=== PATIENT | male | born 1945 | race Caucasian/White ===

== ENCOUNTER 2017-01-10 10:53 | Outpatient (CLI) | payer MEDICARE, BC ==
--- NOTE | 2017-01-10 16:47 | ULT ---
RIGHT UPPER EXTREMITY VENOUS ULTRASOUND 01/10/17 Ultrasonography of the right upper extremity was performed for evaluation of pain and swelling. All deep veins were freely compressible from the jugular/subclavian region down through the distal f orearm. Thus, there is no evidence of DVT. There was normal doppler responses to augmentation maneuv ers. Scanning around the area of swelling showed no sign of mass, focal fluid collection, or other concer lindsey pathology. IMPRESSION: 1. No evidence of DVT. 2. No distinct pathology shown. POS: [facility]
== END 2017-01-10 10:54 | disposition home or self-care (01) ==
LOC: BURULT 10:53
PROVIDERS: ATTEND Family Medicine
DX: M79.631 Pain in right forearm (principal); M79.89 Other specified soft tissue disorders

== ENCOUNTER 2018-05-04 12:07 | Emergency (ER) | payer MEDICARE, BC ==
[2018-05-04] MEDS ORDERED: Lidocaine 1% w/Epinephrine 1:100K 30 ML VIAL ONE (12:18)
[2018-05-04] MEDS ORDERED: Lidocaine 1% PF 5 ML VIAL ONE ×2 (12:19→13:17)
[2018-05-04 12:26] LABS: #Basophils 0.1 thou/uL (0.0-0.2); #Eosinphils 0.3 thou/uL (0.0-0.7); #Lymphocytes 2.2 thou/uL (1.20-3.40); #Monocytes 0.6 thou/uL (0.11-0.59); #Neutrophils 4.4 thou/uL (1.40-6.50); %Basophils 1.5 % (0.0-1.0); %Eosinophils 3.3 % (0.0-10.0); %Lymphocytes 28.9 % (21.0-51.0); %Neutrophils 58.4 % (42.0-75.0); Hemoglobin 14.2 g/dL (14.0-18.0); Mean Corpuscular HGB CONC 33.1 g/dL (32.0-36.0); Mean Corpuscular Hemoglobin 27.4 pg (27.0-31.0); Mean Platelet Volume 7.9 fL (7.4-10.4); Platelet Count 277 thou/uL (130-400); RBC Distribution Width 11.8 % (11.5-14.5); Red Blood Cell (RBC) Count 5.17 mill/uL (4.70-6.10); White Blood Cell (WBC) Count 7.5 thou/uL (4.8-10.8)
[2018-05-04 12:34] LABS: MDiff Complete? YES
[2018-05-04 12:39] LABS: Anion Gap 16 mmol/L (10-20); BUN (Urea Nitrogen) 21 mg/dL (8.4-25.7); Calc. Creatinine Clearance 0 mL/min (70-130); Calcium 9.7 mg/dL (7.8-10.44); Carbon Dioxide 25 mmol/L (23-31); Chloride 103 mmol/L (98-107); Estimated GFR-MDRD 58; Glucose 125 mg/dL (83-110); Potassium 3.6 mmol/L (3.5-5.1); Sodium 140 mmol/L (136-145)
[2018-05-04] MEDS ORDERED: Adacel (T-DAP) 0.5 ML VIAL ONE (12:40)
[2018-05-04 12:44] LABS: CKMB 2.9 ng/mL (0-6.6); Troponin I Less than 0.010 ng/mL (< 0.028)
--- NOTE | 2018-05-04 13:35 | CT ---
CT BRAIN WITHOUT CONTRAST: Date: 05/04/18 HISTORY: Fell from ladder at a height of 4-ft while hanging [place] lights, head laceration, headache. FINDINGS: No evidence of infarct, hemorrhage, midline shift, or abnormal extra-axial fluid collections are seen . The ventricular size is normal and the basilar cisterns are patent. The bony calvarium is intact. T he visualized paranasal sinuses and mastoid air cells are well aerated. IMPRESSION: No CT evidence of acute intracranial process. POS: [facility]
--- NOTE | 2018-05-04 13:37 | RAD ---
PA AND LATERAL VIEWS CHEST: Date: 05/04/18 HISTORY: Injury, fell off 4-ft ladder, chest pain. FINDINGS/IMPRESSION: The heart size is normal. The aorta is tortuous. The lungs are expanded without focal areas of consol idation, pneumothoraces, or pleural effusions. There is subcutaneous emphysema in the right lower nec k. POS: [facility]
--- NOTE | 2018-05-04 13:40 | CT ---
CT CERVICAL SPINE WITH CORONAL AND SAGITTAL REFORMATIONS: Date: 05/04/18 HISTORY: Fell off 4-ft ladder, neck pain. FINDINGS/IMPRESSION: Degenerative changes are present. No acute fracture or subluxation is identified. No facet malalignme nt is seen. There is soft tissue air in the neck (right greater than left) and the mediastinum. Further evaluation with contrast enhanced CT scan of the chest is recommended. POS: [facility]
== END 2018-05-04 13:50 | disposition home or self-care (01) ==
LOC: BURERS 12:07
DX: S09.90XA Unspecified injury of head, initial encounter (principal); S11.91XA Laceration without foreign body of unspecified part of neck, initial encounter; I10 Essential (primary) hypertension; Z79.899 Other long term (current) drug therapy; W11.XXXA Fall on and from ladder, initial encounter
CPT/HCPCS: 12005; 70450; 71046; 72125; 80048; 82553; 84484; 85025; 90471; 90715; 93005; J2001

== ENCOUNTER 2020-05-04 16:04 | Emergency (ER) | payer MEDICARE, BC ==
[2020-05-04] MEDS ORDERED: TETANUS, DIPHTHERIA TOX,ADULT (TDVAX) 0.5 ML VIAL IM ONE ×2 (16:24→16:25)
--- NOTE | 2020-05-04 17:58 | CT ---
CT OF THE BRAIN WITHOUT CONTRAST: 05/04/20 INDICATION: History of fall with head injury. COMPARISON: Prior CT of the brain dated 05/04/18. FINDINGS: There is mild generalized cerebral and cerebellar atrophy. No definite acute infarct, hemorrhage or hydrocephalus is present. the septum pellucidum and third ve ntricle are midline. There is an air hemorrhage layer within the right maxillary sinus. There is a m inimally displaced right posterior and anterior wall right maxillary sinus fracture. The remaining pa ranasal sinuses are clear. Mastoid air cells are clear. IMPRESSION: 1. No acute intracranial abnormality. 2. Right anterior and posterior maxillary sinus wall fracture with associated air hemorrhage lay er within the right maxillary sinus. POS: [facility]
== END 2020-05-04 16:57 | disposition home or self-care (01) ==
LOC: BURERS 16:04
DX: S02.40CA Maxillary fracture, right side, initial encounter for closed fracture (principal); S02.5XXA Fracture of tooth (traumatic), initial encounter for closed fracture; S01.511A Laceration without foreign body of lip, initial encounter; S01.81XA Laceration without foreign body of other part of head, initial encounter; N40.0 Benign prostatic hyperplasia without lower urinary tract symptoms; I10 Essential (primary) hypertension; Z23 Encounter for immunization; W55.22XA Struck by cow, initial encounter; Y99.0 Civilian activity done for income or pay; Z79.899 Other long term (current) drug therapy
CPT/HCPCS: 12011; 70450; 90471; 90714

== ENCOUNTER 2021-05-29 17:16 | Emergency (ER) | payer MEDICARE, BC ==
[2021-05-29 18:03] LABS: Bilirubin Negative (Negative); Blood, Urine Negative (Negative); Clarity Clear (Clear); Glucose, Urine (Dipstick) Negative (Negative); Ketone, Urine 15 mg/dL (Negative); Leukocyte Negative (Negative); Nitrite Negative (Negative); Protein, Urine (Dipstick) Negative (Neg-Trace)
[2021-05-29 18:05] LABS: Hemoglobin 15.4 g/dL (14.0-18.0); Mean Corpuscular HGB CONC 33.7 g/dL (32.0-36.0); Mean Corpuscular Hemoglobin 28.8 pg (27.0-31.0); Mean Corpuscular Volume 85.3 fL (78.0-98.0); Platelet Count 213 thou/uL (130-400); RBC Distribution Width 11.1 % (11.5-14.5); Red Blood Cell (RBC) Count 5.36 mill/uL (4.70-6.10); White Blood Cell (WBC) Count 9.3 thou/uL (4.8-10.8)
[2021-05-29 18:10] LABS: ALT (SGPT) 16 U/L (8-55); AST (SGOT) 19 U/L (5-34); Albumin 4.1 g/dL (3.4-4.8); Alkaline Phosphatase 74 U/L (40-110); Anion Gap 13 mmol/L (10-20); BUN (Urea Nitrogen) 14 mg/dL (8.4-25.7); Bilirubin, Total 1.6 mg/dL (0.2-1.2); Calc. Creatinine Clearance 0 mL/min (70-130); Calcium 10.1 mg/dL (7.8-10.44); Carbon Dioxide 26 mmol/L (23-31); Chloride 95 mmol/L (98-107); Glucose 115 mg/dL (83-110); Potassium 4.4 mmol/L (3.5-5.1); Protein, Total 7.1 g/dL (5.8-8.1); Sodium 130 mmol/L (136-145)
[2021-05-29 20:10] LABS: Band 8 % (5-11); Eosinophils 1 % (0-10); Lymphocytes 16 % (21-51); MDiff Complete? YES; Monocytes 4 % (0-10); Neutrophil 68 % (42-75); Reactive Lymphocytes 3 % (0-10)
[2021-05-30 15:04] LABS: SARS-CoV-2 PCR by NAA Not Detected (NotDetected)
== END 2021-05-29 19:00 | disposition home or self-care (01) ==
LOC: BURERS 17:16
DX: B34.9 Viral infection, unspecified (principal); I10 Essential (primary) hypertension; Z20.822 Contact with and (suspected) exposure to COVID-19; Z79.899 Other long term (current) drug therapy
CPT/HCPCS: 36415; 71045; 80053; 81003; 83605; 85025; 87040; 87086; 99285; U0003; U0005

== ENCOUNTER 2021-05-31 14:19 | Emergency (ER) | payer MEDICARE, BC ==
[2021-05-31 14:59] LABS: #Basophils 0.1 thou/uL (0.0-0.2); #Lymphocytes 0.8 thou/uL (1.20-3.40); #Monocytes 1.1 thou/uL (0.11-0.59); %Eosinophils 0.3 % (0.0-10.0); %Lymphocytes 7.7 % (21.0-51.0); %Monocytes 10.7 % (0.0-10.0); %Neutrophils 80.4 % (42.0-75.0); ALT (SGPT) 18 U/L (8-55); AST (SGOT) 22 U/L (5-34); Alkaline Phosphatase 84 U/L (40-110); Anion Gap 15 mmol/L (10-20); BUN (Urea Nitrogen) 16 mg/dL (8.4-25.7); Bilirubin, Total 1.4 mg/dL (0.2-1.2); Calc. Creatinine Clearance 0 mL/min (70-130); Calcium 9.7 mg/dL (7.8-10.44); Carbon Dioxide 27 mmol/L (23-31); Chloride 82 mmol/L (98-107); Globulin 2.5 g/dL (2.4-3.5); Glucose 121 mg/dL (83-110); Hemoglobin 14.1 g/dL (14.0-18.0); Mean Corpuscular HGB CONC 34.3 g/dL (32.0-36.0); Mean Corpuscular Hemoglobin 28.6 pg (27.0-31.0); Mean Corpuscular Volume 83.3 fL (78.0-98.0); Mean Platelet Volume 7.7 fL (7.4-10.4); Platelet Count 200 thou/uL (130-400); Potassium 3.7 mmol/L (3.5-5.1); Protein, Total 6.5 g/dL (5.8-8.1); Red Blood Cell (RBC) Count 4.94 mill/uL (4.70-6.10); Sodium 120 mmol/L (136-145)
[2021-05-31 15:05] LABS: Bilirubin Negative (Negative); Blood, Urine Negative (Negative); Clarity Clear (Clear); Glucose, Urine (Dipstick) Negative (Negative); Ketone, Urine Trace mg/dL (Negative); Leukocyte Negative (Negative); Nitrite Negative (Negative); Protein, Urine (Dipstick) Negative (Neg-Trace); Specific Gravity, Urine 1.015 (1.005-1.030)
[2021-05-31] MEDS ORDERED: Aspirin Chewable 81 MG TAB ONE (15:24)
== END 2021-05-31 17:00 | disposition short-term general hospital (02) ==
LOC: BURERS 14:19
DX: E87.1 Hypo-osmolality and hyponatremia (principal); R41.82 Altered mental status, unspecified; I45.10 Unspecified right bundle-branch block; I10 Essential (primary) hypertension
CPT/HCPCS: 36416; 70450; 80053; 81003; 83605; 84484; 85025; 93005; 94760

== ENCOUNTER 2021-06-09 18:15 | Inpatient (IN) | payer MEDICARE, BC ==
[2021-06-09 20:46] VITALS: BMI 21.2
[2021-06-10 05:53] LABS: SARS-CoV-2 NAA Rapid Test Not Detected (NotDetected)
[2021-06-10] MEDS: Dutasteride 0.5 MG CAP PO SCH (08:35)
[2021-06-10] MEDS: Fish Oil 1,000 MG CAP PO SCH (08:35)
[2021-06-10] MEDS: Carvedilol 3.125 MG TAB PO SCH ×2 (08:36→21:30)
[2021-06-10] MEDS: Multivit, Therapeutic 1 TAB PO SCH (08:40)
[2021-06-10] MEDS: levETIRAcetam 250 MG TAB PO SCH ×2 (08:41→21:29)
[2021-06-10] MEDS: Lisinopril 20 MG TAB PO SCH (08:41)
[2021-06-10] MEDS: Sodium Chloride 1 GM TAB PO SCH ×3 (08:42→21:29)
[2021-06-10] MEDS ORDERED: LEVETIRACETAM 500 MG PO SCH ×2 (09:00)
[2021-06-10] MEDS ORDERED: Non-Formulary Item 1 EACH (Omeprazole [Omeprazole] 20 MG Capsule.Dr) PO SCH (09:00)
[2021-06-10] MEDS ORDERED: Non-Formulary Item 1 EACH (Multivitamin [Multivitamins] 1 CAP Capsule) PO SCH (09:00)
[2021-06-10] MEDS ORDERED: FLU VACC QS2021-22(65YR UP)/PF 240 MCG/0.7 ML SYRINGE IM ONE (09:00)
[2021-06-10] MEDS: Tamsulosin HCl 0.4 MG CAP PO SCH (09:46)
[2021-06-11] MEDS: Fish Oil 1,000 MG CAP PO SCH (10:15)
[2021-06-11] MEDS: Sodium Chloride 1 GM TAB PO SCH ×3 (10:16→21:26)
[2021-06-11] MEDS: Tamsulosin HCl 0.4 MG CAP PO SCH (10:16)
[2021-06-11] MEDS: Carvedilol 3.125 MG TAB PO SCH ×2 (10:18→21:26)
[2021-06-11] MEDS: Multivit, Therapeutic 1 TAB PO SCH (10:18)
[2021-06-11] MEDS: Dutasteride 0.5 MG CAP PO SCH (10:18)
[2021-06-11] MEDS: Lisinopril 20 MG TAB PO SCH (10:19)
[2021-06-11] MEDS: levETIRAcetam 250 MG TAB PO SCH ×2 (10:19→21:27)
[2021-06-12] MEDS: levETIRAcetam 250 MG TAB PO SCH ×2 (09:26→21:02)
[2021-06-12] MEDS: Lisinopril 20 MG TAB PO SCH (09:27)
[2021-06-12] MEDS: Multivit, Therapeutic 1 TAB PO SCH (09:27)
[2021-06-12] MEDS: Dutasteride 0.5 MG CAP PO SCH (09:27)
[2021-06-12] MEDS: Carvedilol 3.125 MG TAB PO SCH ×2 (09:27→21:03)
[2021-06-12] MEDS: Fish Oil 1,000 MG CAP PO SCH (09:28)
[2021-06-12] MEDS: Sodium Chloride 1 GM TAB PO SCH ×3 (09:28→21:02)
[2021-06-12] MEDS: Tamsulosin HCl 0.4 MG CAP PO SCH (09:28)
[2021-06-13 05:42] LABS: Anion Gap 13 mmol/L (10-20); BUN (Urea Nitrogen) 15 mg/dL (8.4-25.7); Calc. Creatinine Clearance 60 mL/min (70-130); Calcium 9.5 mg/dL (7.8-10.44); Carbon Dioxide 21 mmol/L (23-31); Chloride 104 mmol/L (98-107); Glucose 106 mg/dL (83-110); Sodium 134 mmol/L (136-145)
[2021-06-13] MEDS: Lisinopril 20 MG TAB PO SCH (09:18)
[2021-06-13] MEDS: Fish Oil 1,000 MG CAP PO SCH (09:19)
[2021-06-13] MEDS: Tamsulosin HCl 0.4 MG CAP PO SCH (09:19)
[2021-06-13] MEDS: Multivit, Therapeutic 1 TAB PO SCH (09:19)
[2021-06-13] MEDS: Carvedilol 3.125 MG TAB PO SCH ×2 (09:19→21:44)
[2021-06-13] MEDS: Dutasteride 0.5 MG CAP PO SCH (09:20)
[2021-06-13] MEDS: levETIRAcetam 250 MG TAB PO SCH ×2 (09:20→21:44)
[2021-06-13] MEDS: Sodium Chloride 1 GM TAB PO SCH ×3 (09:20→21:44)
[2021-06-14] MEDS: Lisinopril 20 MG TAB PO SCH (08:46)
[2021-06-14] MEDS: Dutasteride 0.5 MG CAP PO SCH (08:46)
[2021-06-14] MEDS: levETIRAcetam 250 MG TAB PO SCH ×2 (08:48→21:09)
[2021-06-14] MEDS: Sodium Chloride 1 GM TAB PO SCH ×3 (08:49→21:09)
[2021-06-14] MEDS: Carvedilol 3.125 MG TAB PO SCH ×2 (08:49→21:09)
[2021-06-14] MEDS: Multivit, Therapeutic 1 TAB PO SCH (08:49)
[2021-06-14] MEDS: Fish Oil 1,000 MG CAP PO SCH (08:49)
[2021-06-14] MEDS: Tamsulosin HCl 0.4 MG CAP PO SCH (08:49)
[2021-06-15] MEDS: Multivit, Therapeutic 1 TAB PO SCH (09:31)
[2021-06-15] MEDS: levETIRAcetam 250 MG TAB PO SCH ×2 (09:31→20:41)
[2021-06-15] MEDS: Sodium Chloride 1 GM TAB PO SCH ×3 (09:31→20:40)
[2021-06-15] MEDS: Fish Oil 1,000 MG CAP PO SCH (09:31)
[2021-06-15] MEDS: Tamsulosin HCl 0.4 MG CAP PO SCH (09:31)
[2021-06-15] MEDS: Lisinopril 20 MG TAB PO SCH (09:31)
[2021-06-15] MEDS: Carvedilol 3.125 MG TAB PO SCH ×2 (09:31→20:41)
[2021-06-15] MEDS: Dutasteride 0.5 MG CAP PO SCH (09:31)
[2021-06-16 05:46] VITALS: TEMP 98
[2021-06-16] MEDS: Lisinopril 20 MG TAB PO SCH (09:01)
[2021-06-16] MEDS: Multivit, Therapeutic 1 TAB PO SCH (09:01)
[2021-06-16] MEDS: Fish Oil 1,000 MG CAP PO SCH (09:01)
[2021-06-16] MEDS: levETIRAcetam 250 MG TAB PO SCH (09:01)
[2021-06-16] MEDS: Sodium Chloride 1 GM TAB PO SCH (09:01)
[2021-06-16] MEDS: Dutasteride 0.5 MG CAP PO SCH (09:01)
[2021-06-16] MEDS: Carvedilol 3.125 MG TAB PO SCH (09:01)
[2021-06-16] MEDS: Tamsulosin HCl 0.4 MG CAP PO SCH (09:01)
[2021-06-16 09:02] VITALS: BP 105/70
== END 2021-06-16 12:57 | disposition home or self-care (01) | DRG 947 ==
LOC: BURMED 18:15 → UNDOADMIN 18:15
PROVIDERS: ADMIT Family Medicine; ATTEND Family Medicine
DX: R53.1 Weakness (principal); J69.0 Pneumonitis due to inhalation of food and vomit; E22.2 Syndrome of inappropriate secretion of antidiuretic hormone; Z20.822 Contact with and (suspected) exposure to COVID-19; G40.909 Epilepsy, unspecified, not intractable, without status epilepticus; I10 Essential (primary) hypertension; N40.0 Benign prostatic hyperplasia without lower urinary tract symptoms
CPT/HCPCS: 36415; 80048; U0002